=== PATIENT | female | born 1965 | race African-American/Black ===

== ENCOUNTER 2018-04-28 23:14 | Emergency (ER) | payer MEDICARE, MEDICAID ==
[2018-04-29] MEDS ORDERED: Acetaminophen/Codeine 30-300mg Tablet ONE (03:16)
== END 2018-04-29 03:57 | disposition home or self-care (01) ==
LOC: ERS 23:14
DX: J01.90 Acute sinusitis, unspecified (principal)
CPT/HCPCS: 99283

== ENCOUNTER 2019-04-01 10:31 | Emergency (ER) | payer MEDICARE, MEDICAID ==
[2019-04-01 11:03] LABS: #Lymphocytes 1.1 thou/uL (1.20-3.40); #Monocytes 0.6 thou/uL (0.11-0.59); #Neutrophils 3.9 thou/uL (1.40-6.50); %Basophils 0.1 % (0.0-1.0); %Eosinophils 0.6 % (0.0-10.0); %Lymphocytes 20.2 % (21.0-51.0); %Monocytes 10.7 % (0.0-10.0); %Neutrophils 68.5 % (42.0-75.0); Hemoglobin 13.4 g/dL (12.0-16.0); Mean Corpuscular HGB CONC 32.3 g/dL (32.0-36.0); Mean Corpuscular Hemoglobin 32.4 pg (27.0-31.0); Platelet Count 28 thou/uL (130-400); RBC Distribution Width 12.8 % (11.5-14.5); Red Blood Cell (RBC) Count 4.14 mill/uL (4.20-5.40); Reflex for Review?? NO; White Blood Cell (WBC) Count 5.7 thou/uL (4.8-10.8)
--- NOTE | 2019-04-01 11:06 | RAD ---
EXAM: Two views chest PROVIDED CLINICAL HISTORY: Productive cough for 3 days. History of lymphoma. COMPARISON: 09/10/2014. FINDINGS: There has been interval placement of a right internal jugular vein CT injectable Mediport catheter wi th tip overlying the distal SVC. Cardiac silhouette and pulmonary vasculature are within normal limits. The lungs are clear. The osseous structures have a normal appearance. No other interval canales e. IMPRESSION: No acute cardiopulmonary process.
[2019-04-01 11:26] LABS: ALT (SGPT) 22 U/L (8-55); AST (SGOT) 24 U/L (5-34); Alkaline Phosphatase 106 U/L (40-150); Anion Gap 13 mmol/L (10-20); BUN (Urea Nitrogen) 16 mg/dL (9.8-20.1); Bilirubin, Total 0.6 mg/dL (0.2-1.2); Calc. Creatinine Clearance 0 mL/min (70-130); Carbon Dioxide 26 mmol/L (22-29); Chloride 103 mmol/L (98-107); Estimated GFR-MDRD 68; Globulin 3.8 g/dL (2.4-3.5); Glucose 184 mg/dL (70-105); Potassium 4.1 mmol/L (3.5-5.1); Protein, Total 7.8 g/dL (6.0-8.3); Sodium 138 mmol/L (136-145)
== END 2019-04-01 12:45 | disposition home or self-care (01) ==
LOC: ERS 10:31
DX: J20.9 Acute bronchitis, unspecified (principal); D69.6 Thrombocytopenia, unspecified; E11.9 Type 2 diabetes mellitus without complications; Z79.4 Long term (current) use of insulin
CPT/HCPCS: 36415; 71046; 80053; 85025; 94640; J7620

== ENCOUNTER 2022-08-29 07:15 | Inpatient (IN) | payer MEDICARE, MEDICAID ==
[2022-08-29] MEDS ORDERED: Morphine 4 MG/ML VIAL ONE (07:52)
[2022-08-29 08:30] LABS: #Monocytes 0.8 thou/uL (0.11-0.59); #Neutrophils 8.8 thou/uL (1.40-6.50); %Basophils 0.2 % (0.0-1.0); %Eosinophils 0.1 % (0.0-10.0); %Monocytes 7.1 % (0.0-10.0); %Neutrophils 83.6 % (42.0-75.0); Mean Corpuscular HGB CONC 32.4 g/dL (32.0-36.0); Mean Corpuscular Hemoglobin 32.2 pg (27.0-31.0); Mean Corpuscular Volume 99.3 fl (78.0-98.0); Mean Platelet Volume 10.4 fL (7.4-10.4); Platelet Count 190 10x3/uL (130-400); RBC Distribution Width 12.7 % (11.5-14.5); Red Blood Cell (RBC) Count 3.43 mill/uL (4.20-5.40); White Blood Cell (WBC) Count 10.5 10x3/uL (4.8-10.8)
[2022-08-29 08:35] LABS: ALT (SGPT) 13 U/L (8-55); AST (SGOT) 20 U/L (5-34); Albumin 3.2 g/dL (3.5-5.0); Alkaline Phosphatase 72 U/L (40-110); Anion Gap 16 mmol/L (10-20); BUN (Urea Nitrogen) 12 mg/dL (9.8-20.1); Bilirubin, Total 1.1 mg/dL (0.2-1.2); Calc. Creatinine Clearance 0 mL/min (70-130); Calcium 8.9 mg/dL (7.8-10.44); Carbon Dioxide 18 mmol/L (22-29); Chloride 103 mmol/L (98-107); Estimated GFR 80; Globulin 3.9 g/dL (2.4-3.5); Glucose 175 mg/dL (70-105); Potassium 3.8 mmol/L (3.5-5.1); Protein, Total 7.1 g/dL (6.0-8.3); Sodium 133 mmol/L (136-145)
[2022-08-29] MEDS ORDERED: Iopamidol-370 76% 500 ML 1 ML ONE (09:14)
[2022-08-29] MEDS ORDERED: Famotidine/PF 20 mg/2ml Vial ONE (09:41)
[2022-08-29] MEDS ORDERED: methylPREDNISolone Sod Succ 40 MG VIAL ONE (09:41)
[2022-08-29] MEDS ORDERED: diphenhydrAMINE 50 MG/ML VIAL ONE (09:41)
[2022-08-29] MEDS ORDERED: Vancomycin 1.5 GRAM/300 ML BAG 1.5 GM in Premix Bag 1 BAG IVPB SCH (10:15)
[2022-08-29] MEDS ORDERED: Cefepime 2 GM VIAL ONE (11:05)
[2022-08-29] MEDS ORDERED: HumaLOG 300 UNITS/3 ML VIAL SC PRN (12:36)
[2022-08-29] MEDS ORDERED: Dextrose 50% Abboject 50 ML SYRINGE SLOW IVP PRN (12:36)
[2022-08-29] MEDS ORDERED: Dextrose 5% in Water 1,000 ML IV PRN (12:36)
[2022-08-29 12:46] LABS: SARS-CoV-2 NAA Rapid Test Not Detected (NotDetected)
[2022-08-29 12:50] LABS: Troponin I Less than 0.010 ng/mL (< 0.028)
[2022-08-29] MEDS ORDERED: fentaNYL PF 100 MCG/2 ML SYRINGE ONE ×2 (13:00→15:43)
[2022-08-29] MEDS ORDERED: Phenylephrine 10 MG/ML VIAL ONE ×2 (13:01→14:29)
[2022-08-29 13:21] LABS: Lactic Acid 2.2 mmol/L (0.5-2.2)
[2022-08-29] MEDS ORDERED: SUGAMMADEX SODIUM 200 MG/2 ML VIAL ONE (14:06)
[2022-08-29] MEDS ORDERED: PROPOFOL 200 MG/20 ML VIAL ONE (14:29)
[2022-08-29] MEDS ORDERED: Rocuronium Bromide 10 MG/ML (10ML VIAL) ONE (14:29)
[2022-08-29] MEDS ORDERED: Ondansetron PF 4 MG/2 ML Vial ONE (14:29)
[2022-08-29] MEDS ORDERED: ePHEDrine 50 MG/ML VIAL ONE (14:29)
[2022-08-29] MEDS ORDERED: Succinylcholine 200 MG/10 ml SYRINGE FS ONE (14:29)
[2022-08-29] MEDS ORDERED: Sodium Bicarb 50 MEQ/50 ML VIAL ONE (14:48)
[2022-08-29] MEDS ORDERED: Bupivacaine HCl 0.5%/Epinephrine 1:200,000/PF 30 ml Vial ONE (14:51)
[2022-08-29] MEDS ORDERED: Meperidine HCl/PF 25 MG/ML VIAL SLOW IVP PRN (14:58)
[2022-08-29] MEDS ORDERED: Promethazine HCl 25 MG/ML VIAL IM PRN (14:58)
[2022-08-29] MEDS ORDERED: HYDROmorphone 2 MG/ML VIAL SLOW IVP PRN (14:58)
[2022-08-29] MEDS ORDERED: Promethazine HCl 25 MG/ML VIAL IVPB PRN (14:58)
[2022-08-29] MEDS ORDERED: HYDROcodone/Acetaminophen 5/325 mg Tablet PO PRN (15:09)
[2022-08-29] MEDS ORDERED: Midazolam HCl 2 mg/2 ml Vial ONE (15:20)
[2022-08-29 15:35] LABS: RBC Count-Automated (BF) 6069 /cu.mm; WBC/Nucleated-Auto (BF) 1830 /cu.mm
[2022-08-29 16:00] LABS: BF Color Brown; Body Fluid Source Pericardial Fluid; Clarity Hazy (Clear); Tube # EDTA
[2022-08-29 16:01] LABS: BF Segmented Neutrophils 86 %; Cell Count Non Hematic 14 %
[2022-08-29] MEDS ORDERED: HYDROmorphone 0.5 MG/0.5 ML SYRINGE ONE (16:04)
[2022-08-29 16:15] LABS: Fluid, Protein 5.3 g/dL (Not Available)
[2022-08-29] MEDS: Acetaminophen 500 MG TAB PO SCH ×2 (17:33→21:02)
[2022-08-29] MEDS: Ibuprofen 800 MG TAB PO SCH ×2 (17:33→21:03)
[2022-08-29 17:47] VITALS: BMI 32.4
[2022-08-29 19:09] LABS: Troponin I 0.128 ng/mL (< 0.028)
[2022-08-29] MEDS ORDERED: Vancomycin 1 GM in Premix Bag 1 BAG IVPB SCH (21:00)
[2022-08-29] MEDS: Famotidine 20 MG TAB PO SCH (21:02)
[2022-08-29] MEDS: Senokot S 8.6-50 MG TAB PO PRN (21:07)
[2022-08-29] MEDS: Morphine 4 MG/ML VIAL SLOW IVP PRN (23:55)
[2022-08-29] MEDS: Cefepime 2 GM in Sodium Chloride 0.9% 100 ML IVPB SCH (23:55)
[2022-08-30] MEDS: Vancomycin HCl 750 MG in Sodium Chloride 0.9% 250 ML 250 ML IVPB SCH ×3 (01:01→23:47)
[2022-08-30 04:40] LABS: #Eosinphils 0.1 thou/uL (0.0-0.7); #Lymphocytes 1.2 thou/uL (1.20-3.40); #Monocytes 0.9 thou/uL (0.11-0.59); #Neutrophils 6.4 thou/uL (1.40-6.50); %Basophils 0.1 % (0.0-1.0); %Eosinophils 0.6 % (0.0-10.0); %Lymphocytes 14.4 % (21.0-51.0); %Neutrophils 74.9 % (42.0-75.0); Hemoglobin 11.1 g/dL (12.0-16.0); Mean Corpuscular HGB CONC 32.8 g/dL (32.0-36.0); Mean Corpuscular Hemoglobin 33.7 pg (27.0-31.0); Mean Platelet Volume 9.7 fL (7.4-10.4); Platelet Count 194 10x3/uL (130-400); Red Blood Cell (RBC) Count 3.31 mill/uL (4.20-5.40); White Blood Cell (WBC) Count 8.6 10x3/uL (4.8-10.8)
[2022-08-30 04:50] LABS: Anion Gap 12 mmol/L (10-20); BUN (Urea Nitrogen) 17 mg/dL (9.8-20.1); Calc. Creatinine Clearance 83 mL/min (70-130); Calcium 8.5 mg/dL (7.8-10.44); Carbon Dioxide 22 mmol/L (22-29); Chloride 107 mmol/L (98-107); Estimated GFR 61; Glucose 126 mg/dL (70-105); Potassium 4.1 mmol/L (3.5-5.1); Sodium 137 mmol/L (136-145)
[2022-08-30] MEDS: Ibuprofen 800 MG TAB PO SCH ×3 (06:38→21:32)
[2022-08-30] MEDS ORDERED: Acetaminophen 500 MG TAB PO PRN (08:03)
[2022-08-30] MEDS: Enoxaparin Sodium 40 MG/0.4 ML SYRINGE SC SCH (08:51)
[2022-08-30] MEDS: Famotidine 20 MG TAB PO SCH ×3 (08:52→21:37)
[2022-08-30] MEDS: Cefepime 2 GM in Sodium Chloride 0.9% 100 ML IVPB SCH ×2 (12:18→22:29)
[2022-08-30] MEDS: Morphine 4 MG/ML VIAL SLOW IVP PRN (12:19)
[2022-08-30] MEDS: Bisacodyl 5 MG TAB PO PRN (12:29)
[2022-08-30] MEDS ORDERED: Dicyclomine 20 MG TAB PO PRN (12:42)
[2022-08-30] MEDS ORDERED: Amitriptyline HCl 25 MG TAB PO PRN (12:42)
[2022-08-30] MEDS ORDERED: Cyclobenzaprine 10 MG TAB PO PRN (12:42)
[2022-08-30] MEDS ORDERED: Loratadine 10 MG TAB PO PRN (12:53)
[2022-08-30] MEDS ORDERED: Albuterol Sulfate 2.5 mg/3 ml Neb NEB PRN (13:18)
[2022-08-30] MEDS: HYDROcodone/Acetaminophen 10/325 mg Tablet PO PRN ×2 (14:54→22:29)
[2022-08-30] MEDS: ALPRAZolam 0.5 MG TAB PO PRN (16:44)
[2022-08-30] MEDS: Polyethylene Glycol 3350 17 GM Packet PO PRN (16:44)
[2022-08-30] MEDS: Gabapentin 300 MG CAP PO SCH (21:32)
[2022-08-30 23:23] LABS: Vancomycin, Trough 15.7 ug/mL
[2022-08-31 04:47] LABS: Hemoglobin 10.3 g/dL (12.0-16.0); Mean Corpuscular HGB CONC 32.6 g/dL (32.0-36.0); Mean Corpuscular Hemoglobin 33.4 pg (27.0-31.0); Mean Platelet Volume 9.8 fL (7.4-10.4); Platelet Count 209 10x3/uL (130-400); RBC Distribution Width 12.8 % (11.5-14.5); Red Blood Cell (RBC) Count 3.09 mill/uL (4.20-5.40); White Blood Cell (WBC) Count 4.9 10x3/uL (4.8-10.8)
[2022-08-31 05:16] LABS: Anion Gap 14 mmol/L (10-20); BUN (Urea Nitrogen) 24 mg/dL (9.8-20.1); Calc. Creatinine Clearance 91 mL/min (70-130); Calcium 8.6 mg/dL (7.8-10.44); Carbon Dioxide 21 mmol/L (22-29); Chloride 107 mmol/L (98-107); Estimated GFR 68; Glucose 106 mg/dL (70-105); Potassium 3.9 mmol/L (3.5-5.1); Sodium 138 mmol/L (136-145)
[2022-08-31] MEDS: Ibuprofen 800 MG TAB PO SCH ×3 (06:35→23:11)
[2022-08-31] MEDS ORDERED: Non-Formulary Item 1 EACH (Linaclotide [Linzess] 145 MCG Capsule) PO SCH (09:00)
[2022-08-31] MEDS: Senokot S 8.6-50 MG TAB PO PRN (10:28)
[2022-08-31] MEDS: Famotidine 20 MG TAB PO SCH ×2 (10:30→20:02)
[2022-08-31] MEDS: Enoxaparin Sodium 40 MG/0.4 ML SYRINGE SC SCH (10:31)
[2022-08-31] MEDS: Gabapentin 300 MG CAP PO SCH ×3 (10:31→20:15)
[2022-08-31] MEDS: Bisacodyl 5 MG TAB PO PRN (10:33)
[2022-08-31] MEDS: Polyethylene Glycol 3350 17 GM Packet PO PRN (10:33)
[2022-08-31] MEDS: Cefepime 2 GM in Sodium Chloride 0.9% 100 ML IVPB SCH ×2 (12:17→23:58)
[2022-08-31] MEDS: HYDROcodone/Acetaminophen 5/325 mg Tablet PO PRN (12:25)
[2022-08-31] MEDS: Vancomycin HCl 750 MG in Sodium Chloride 0.9% 250 ML 250 ML IVPB SCH ×2 (13:01→23:59)
[2022-08-31] MEDS: Morphine 4 MG/ML VIAL SLOW IVP PRN (20:22)
[2022-09-01 05:05] LABS: ALT (SGPT) 15 U/L (8-55); AST (SGOT) 20 U/L (5-34); Albumin 2.6 g/dL (3.5-5.0); Alkaline Phosphatase 85 U/L (40-110); Anion Gap 9 mmol/L (10-20); BUN (Urea Nitrogen) 24 mg/dL (9.8-20.1); Bilirubin, Total 0.3 mg/dL (0.2-1.2); Calc. Creatinine Clearance 79 mL/min (70-130); Calcium 8.7 mg/dL (7.8-10.44); Carbon Dioxide 25 mmol/L (22-29); Chloride 108 mmol/L (98-107); Estimated GFR 57; Globulin 3.3 g/dL (2.4-3.5); Glucose 122 mg/dL (70-105); Magnesium 1.7 mg/dL (1.6-2.6); Phosphorus 3.2 mg/dL (2.3-4.7); Potassium 3.8 mmol/L (3.5-5.1); Protein, Total 5.9 g/dL (6.0-8.3); Sodium 138 mmol/L (136-145)
[2022-09-01] MEDS: Ibuprofen 800 MG TAB PO SCH ×3 (07:34→22:40)
[2022-09-01 08:16] LABS: Band 2 % (5-11); Eosinophils 3 % (0-10); Hemoglobin 9.6 g/dL (12.0-16.0); Lymphocytes 34 % (21-51); MDiff Complete? YES; Mean Corpuscular HGB CONC 31.6 g/dL (32.0-36.0); Mean Corpuscular Hemoglobin 32.4 pg (27.0-31.0); Mean Platelet Volume 9.6 fL (7.4-10.4); Monocytes 22 % (0-10); Neutrophil 39 % (42-75); Nucleated RBC 2 % (0); Ovalocytes SLIGHT = 2-5 cells (100X) (0-1/hpf); Platelet Count 237 10x3/uL (130-400); Platelet Morphology Comment Appears Adequate; RBC Distribution Width 12.9 % (11.5-14.5); Red Blood Cell (RBC) Count 2.98 mill/uL (4.20-5.40); White Blood Cell (WBC) Count 2.7 10x3/uL (4.8-10.8)
[2022-09-01] MEDS: Enoxaparin Sodium 40 MG/0.4 ML SYRINGE SC SCH (09:14)
[2022-09-01] MEDS: Famotidine 20 MG TAB PO SCH ×2 (09:14→21:09)
[2022-09-01] MEDS: Gabapentin 300 MG CAP PO SCH ×2 (09:14→20:55)
[2022-09-01] MEDS: Cefepime 2 GM in Sodium Chloride 0.9% 100 ML IVPB SCH (10:49)
[2022-09-01 11:29] LABS: Vancomycin, Trough 17.1 ug/mL
[2022-09-01] MEDS: HYDROcodone/Acetaminophen 10/325 mg Tablet PO PRN ×2 (12:46→21:08)
[2022-09-01] MEDS: Vancomycin HCl 750 MG in Sodium Chloride 0.9% 250 ML 250 ML IVPB SCH ×2 (14:30→23:27)
[2022-09-01] MEDS: Morphine 4 MG/ML VIAL SLOW IVP PRN (18:20)
[2022-09-01] MEDS ORDERED: Prevnar 13-Val Conj/PF 0.5 ML SYRINGE IM ONE (18:30)
[2022-09-01] MEDS: ALPRAZolam 0.5 MG TAB PO PRN (21:09)
[2022-09-01] MEDS: Cefepime 1 GM in Sodium Chloride 0.9% 100 ML IVPB SCH (22:41)
[2022-09-02 05:34] LABS: ALT (SGPT) 13 U/L (8-55); AST (SGOT) 18 U/L (5-34); Albumin 2.7 g/dL (3.5-5.0); Alkaline Phosphatase 90 U/L (40-110); Anion Gap 12 mmol/L (10-20); BUN (Urea Nitrogen) 22 mg/dL (9.8-20.1); Bilirubin, Total 0.3 mg/dL (0.2-1.2); Calc. Creatinine Clearance 107 mL/min (70-130); Calcium 8.9 mg/dL (7.8-10.44); Carbon Dioxide 25 mmol/L (22-29); Chloride 109 mmol/L (98-107); Estimated GFR 83; Globulin 3.6 g/dL (2.4-3.5); Glucose 102 mg/dL (70-105); Magnesium 1.7 mg/dL (1.6-2.6); Phosphorus 3.7 mg/dL (2.3-4.7); Potassium 3.8 mmol/L (3.5-5.1); Protein, Total 6.3 g/dL (6.0-8.3); Sodium 142 mmol/L (136-145)
[2022-09-02] MEDS: Ibuprofen 800 MG TAB PO SCH ×3 (06:18→20:07)
[2022-09-02 07:14] LABS: Band 4 % (5-11); Burr Cells SLIGHT = 2-5 cells (100X) (0-1/hpf); Eosinophils 1 % (0-10); Hemoglobin 10.3 g/dL (12.0-16.0); Hypochromia SLIGHT = 6-15 cells (100X) (0-5/hpf); Lymphocytes 19 % (21-51); MDiff Complete? YES; Macrocytosis SLIGHT = 6-15 cells (100X) (0-5/hpf); Mean Corpuscular HGB CONC 31.3 g/dL (32.0-36.0); Mean Corpuscular Hemoglobin 32.5 pg (27.0-31.0); Mean Platelet Volume 9.5 fL (7.4-10.4); Monocytes 8 % (0-10); Neutrophil 68 % (42-75); Ovalocytes SLIGHT = 2-5 cells (100X) (0-1/hpf); Platelet Count 272 10x3/uL (130-400); Platelet Morphology Comment Appears Adequate; Polychromasia SLIGHT = 2-3 cells (100X) (0-2/hpf); RBC Distribution Width 13.2 % (11.5-14.5); Red Blood Cell (RBC) Count 3.19 mill/uL (4.20-5.40); White Blood Cell (WBC) Count 4.7 10x3/uL (4.8-10.8)
[2022-09-02] MEDS: Enoxaparin Sodium 40 MG/0.4 ML SYRINGE SC SCH (08:57)
[2022-09-02] MEDS: Gabapentin 300 MG CAP PO SCH ×2 (08:57→20:08)
[2022-09-02] MEDS: Famotidine 20 MG TAB PO SCH ×2 (08:57→20:07)
[2022-09-02] MEDS: HYDROcodone/Acetaminophen 10/325 mg Tablet PO PRN (08:58)
[2022-09-02] MEDS: HYDROcodone/Acetaminophen 5/325 mg Tablet PO PRN (09:00)
[2022-09-02] MEDS: Polyethylene Glycol 3350 17 GM Packet PO PRN (09:01)
[2022-09-02] MEDS: Cefepime 1 GM in Sodium Chloride 0.9% 100 ML IVPB SCH (11:40)
[2022-09-02] MEDS: Vancomycin HCl 750 MG in Sodium Chloride 0.9% 250 ML 250 ML IVPB SCH (12:58)
[2022-09-02] MEDS: Cefdinir 300 MG CAP PO SCH (20:07)
[2022-09-02] MEDS: ALPRAZolam 0.5 MG TAB PO PRN (20:07)
[2022-09-02] MEDS: Morphine 4 MG/ML VIAL SLOW IVP PRN (21:46)
[2022-09-03 05:11] LABS: ALT (SGPT) 12 U/L (8-55); AST (SGOT) 17 U/L (5-34); Albumin 2.6 g/dL (3.5-5.0); Alkaline Phosphatase 102 U/L (40-110); Anion Gap 11 mmol/L (10-20); BUN (Urea Nitrogen) 23 mg/dL (9.8-20.1); Bilirubin, Total 0.3 mg/dL (0.2-1.2); Calc. Creatinine Clearance 100 mL/min (70-130); Calcium 8.9 mg/dL (7.8-10.44); Carbon Dioxide 25 mmol/L (22-29); Chloride 111 mmol/L (98-107); Estimated GFR 77; Globulin 3.4 g/dL (2.4-3.5); Glucose 90 mg/dL (70-105); Potassium 4.1 mmol/L (3.5-5.1); Sodium 143 mmol/L (136-145)
[2022-09-03 06:01] LABS: Band 9 % (5-11); Eosinophils 1 % (0-10); Hemoglobin 9.9 g/dL (12.0-16.0); Hypochromia SLIGHT = 6-15 cells (100X) (0-5/hpf); Lymphocytes 22 % (21-51); MDiff Complete? YES; Macrocytosis SLIGHT = 6-15 cells (100X) (0-5/hpf); Mean Corpuscular HGB CONC 34.8 g/dL (32.0-36.0); Mean Corpuscular Hemoglobin 35.6 pg (27.0-31.0); Mean Platelet Volume 9.3 fL (7.4-10.4); Monocytes 12 % (0-10); Neutrophil 56 % (42-75); Platelet Count 284 10x3/uL (130-400); Platelet Morphology Comment Appears Adequate; Red Blood Cell (RBC) Count 2.77 mill/uL (4.20-5.40); White Blood Cell (WBC) Count 3.9 10x3/uL (4.8-10.8)
[2022-09-03] MEDS: Ibuprofen 800 MG TAB PO SCH ×4 (06:10→20:56)
[2022-09-03] MEDS: Enoxaparin Sodium 40 MG/0.4 ML SYRINGE SC SCH (14:11)
[2022-09-03] MEDS: Cefdinir 300 MG CAP PO SCH ×2 (14:11→20:29)
[2022-09-03] MEDS: Gabapentin 300 MG CAP PO SCH ×2 (14:12→20:32)
[2022-09-03] MEDS: Famotidine 20 MG TAB PO SCH ×2 (14:12→20:29)
[2022-09-03] MEDS: Morphine 4 MG/ML VIAL SLOW IVP PRN (15:29)
[2022-09-03] MEDS: Polyethylene Glycol 3350 17 GM Packet PO PRN (15:30)
[2022-09-03] MEDS: Doxycycline 100 MG in Sodium Chloride 0.9% 100 ML IVPB SCH (20:29)
[2022-09-03] MEDS: ALPRAZolam 0.5 MG TAB PO PRN (20:46)
[2022-09-03] MEDS: HYDROcodone/Acetaminophen 5/325 mg Tablet PO PRN (20:46)
[2022-09-04 05:25] LABS: ALT (SGPT) 15 U/L (8-55); AST (SGOT) 19 U/L (5-34); Albumin 2.8 g/dL (3.5-5.0); Alkaline Phosphatase 104 U/L (40-110); Anion Gap 13 mmol/L (10-20); BUN (Urea Nitrogen) 18 mg/dL (9.8-20.1); Bilirubin, Total 0.3 mg/dL (0.2-1.2); Calc. Creatinine Clearance 114 mL/min (70-130); Calcium 9.2 mg/dL (7.8-10.44); Carbon Dioxide 24 mmol/L (22-29); Chloride 108 mmol/L (98-107); Estimated GFR 90; Globulin 3.5 g/dL (2.4-3.5); Glucose 98 mg/dL (70-105); Potassium 4.1 mmol/L (3.5-5.1); Protein, Total 6.3 g/dL (6.0-8.3); Sodium 141 mmol/L (136-145)
[2022-09-04 05:27] LABS: Hemoglobin 10.2 g/dL (12.0-16.0); Mean Corpuscular Hemoglobin 32.7 pg (27.0-31.0); Mean Platelet Volume 9.2 fL (7.4-10.4); Platelet Count 312 10x3/uL (130-400); RBC Distribution Width 13.1 % (11.5-14.5); Red Blood Cell (RBC) Count 3.14 mill/uL (4.20-5.40); White Blood Cell (WBC) Count 3.7 10x3/uL (4.8-10.8)
[2022-09-04 05:28] LABS: #Eosinphils 0.1 thou/uL (0.0-0.7); #Lymphocytes 1.8 thou/uL (1.20-3.40); #Monocytes 0.5 thou/uL (0.11-0.59); #Neutrophils 1.3 thou/uL (1.40-6.50); %Basophils 0.3 % (0.0-1.0); %Eosinophils 2.7 % (0.0-10.0); %Lymphocytes 47.9 % (21.0-51.0); %Monocytes 13.7 % (0.0-10.0); %Neutrophils 35.3 % (42.0-75.0)
[2022-09-04] MEDS: Famotidine 20 MG TAB PO SCH ×2 (09:55→21:40)
[2022-09-04] MEDS: Gabapentin 300 MG CAP PO SCH ×2 (09:55→21:41)
[2022-09-04] MEDS: Cefdinir 300 MG CAP PO SCH ×2 (09:56→21:39)
[2022-09-04] MEDS: Doxycycline 100 MG in Sodium Chloride 0.9% 100 ML IVPB SCH (09:56)
[2022-09-04] MEDS: Enoxaparin Sodium 40 MG/0.4 ML SYRINGE SC SCH (09:56)
[2022-09-04] MEDS: HYDROcodone/Acetaminophen 10/325 mg Tablet PO PRN (09:58)
[2022-09-04] MEDS: Ibuprofen 800 MG TAB PO SCH ×3 (11:03→21:41)
[2022-09-04] MEDS: Polyethylene Glycol 3350 17 GM Packet PO PRN (12:12)
[2022-09-04] MEDS: Doxycycline 100 MG CAP PO SCH (21:39)
[2022-09-04] MEDS: ALPRAZolam 0.5 MG TAB PO PRN (21:40)
[2022-09-04] MEDS: HYDROcodone/Acetaminophen 5/325 mg Tablet PO PRN (21:40)
[2022-09-05 05:25] LABS: ALT (SGPT) 17 U/L (8-55); AST (SGOT) 23 U/L (5-34); Albumin 2.9 g/dL (3.5-5.0); Alkaline Phosphatase 95 U/L (40-110); Anion Gap 14 mmol/L (10-20); BUN (Urea Nitrogen) 15 mg/dL (9.8-20.1); Bilirubin, Total 0.4 mg/dL (0.2-1.2); Calc. Creatinine Clearance 111 mL/min (70-130); Calcium 9.2 mg/dL (7.8-10.44); Carbon Dioxide 28 mmol/L (22-29); Chloride 106 mmol/L (98-107); Estimated GFR 87; Globulin 3.2 g/dL (2.4-3.5); Glucose 90 mg/dL (70-105); Potassium 4.7 mmol/L (3.5-5.1); Protein, Total 6.1 g/dL (6.0-8.3); Sodium 143 mmol/L (136-145)
[2022-09-05 05:51] LABS: Hemoglobin 10.8 g/dL (12.0-16.0); Hypochromia SLIGHT = 6-15 cells (100X) (0-5/hpf); Lymphocytes 56 % (21-51); MDiff Complete? YES; Macrocytosis SLIGHT = 6-15 cells (100X) (0-5/hpf); Mean Corpuscular HGB CONC 33.3 g/dL (32.0-36.0); Mean Corpuscular Hemoglobin 33.8 pg (27.0-31.0); Mean Platelet Volume 8.9 fL (7.4-10.4); Monocytes 4 % (0-10); Neutrophil 40 % (42-75); Platelet Count 343 10x3/uL (130-400); Platelet Morphology Comment Appears Increased; RBC Distribution Width 12.9 % (11.5-14.5); White Blood Cell (WBC) Count 2.3 10x3/uL (4.8-10.8)
[2022-09-05] MEDS: Ibuprofen 800 MG TAB PO SCH ×2 (08:36→12:38)
[2022-09-05] MEDS: Cefdinir 300 MG CAP PO SCH (08:37)
[2022-09-05] MEDS: Enoxaparin Sodium 40 MG/0.4 ML SYRINGE SC SCH (08:37)
[2022-09-05] MEDS: Polyethylene Glycol 3350 17 GM Packet PO PRN (08:37)
[2022-09-05] MEDS: Famotidine 20 MG TAB PO SCH (08:37)
[2022-09-05] MEDS: Doxycycline 100 MG CAP PO SCH (08:37)
[2022-09-05] MEDS: HYDROcodone/Acetaminophen 10/325 mg Tablet PO PRN (08:38)
[2022-09-05] MEDS: Gabapentin 300 MG CAP PO SCH (08:39)
[2022-09-05 12:37] VITALS: BP 133/91; TEMP 98.9
[2022-09-08 09:39] LABS: Final Culture No virus isolated. (.)
== END 2022-09-05 17:15 | disposition home or self-care (01) | DRG 270 ==
LOC: ERS 07:15 → ERHOLD 11:21 → CCU 14:17 → 2NO 17:47
PROVIDERS: ADMIT Hospitalist; ATTEND Internal Medicine
PROC: 0W9D0ZZ Drainage of Pericardial Cavity, Open Approach (ICD-10-PCS; principal; 2022-08-29)
DX: I30.9 Acute pericarditis, unspecified (principal); J18.9 Pneumonia, unspecified organism; J96.01 Acute respiratory failure with hypoxia; C88.4 Extranodal marginal zone B-cell lymphoma of mucosa-associated lymphoid tissue [MALT-lymphoma]; D69.3 Immune thrombocytopenic purpura; E87.20 Acidosis, unspecified; Z20.822 Contact with and (suspected) exposure to COVID-19; M32.9 Systemic lupus erythematosus, unspecified; J43.9 Emphysema, unspecified; F41.9 Anxiety disorder, unspecified; F32.A Depression, unspecified; E11.9 Type 2 diabetes mellitus without complications; Z90.710 Acquired absence of both cervix and uterus; Z88.0 Allergy status to penicillin; Z79.899 Other long term (current) drug therapy
CPT/HCPCS: 36415; 36416; 71045; 71275; 80048; 80053; 80202; 82103; 82150; 83605; 83735; 83880; 84100; 84145; 84157; 84484; 85025; 85027; 85060; 85379; 87040; 87070; 87205; 87252; 87811; 88112; 88305; 89051; 93005; 93306; 94640; 96361; 96365; 96375; 97139; J0692; J1170; J1200; J1642; J1650; J2250; J2270; J2370; J2405; J2704; J2920; J3370; J3490; J7050; J7611; J7620; Q9967; S0028

== ENCOUNTER 2022-11-05 00:23 | Emergency (ER) | payer MEDICARE, MEDICAID ==
[2022-11-05] MEDS ORDERED: methylPREDNISolone Sod Succ 40 MG VIAL ONE (01:47)
[2022-11-05] MEDS ORDERED: diphenhydrAMINE 50 MG/ML VIAL ONE (01:47)
[2022-11-05] MEDS ORDERED: Famotidine/PF 20 mg/2ml Vial ONE (01:47)
[2022-11-05 02:11] LABS: PTT 28.6 sec (22.9-36.1)
[2022-11-05 02:15] LABS: Hemoglobin 11.1 g/dL (12.0-16.0); Mean Corpuscular Hemoglobin 32.8 pg (27.0-31.0); Mean Corpuscular Volume 99.5 fl (78.0-98.0); Mean Platelet Volume 10.5 fL (7.4-10.4); Platelet Count 210 10x3/uL (130-400); RBC Distribution Width 13.2 % (11.5-14.5); White Blood Cell (WBC) Count 9.5 10x3/uL (4.8-10.8)
[2022-11-05 02:19] LABS: ALT (SGPT) 11 U/L (8-55); AST (SGOT) 16 U/L (5-34); Albumin 3.5 g/dL (3.5-5.0); Alkaline Phosphatase 101 U/L (40-110); Anion Gap 16 mmol/L (10-20); BUN (Urea Nitrogen) 19 mg/dL (9.8-20.1); Bilirubin, Total 0.4 mg/dL (0.2-1.2); Calc. Creatinine Clearance 0 mL/min (70-130); Calcium 9.1 mg/dL (7.8-10.44); Carbon Dioxide 25 mmol/L (22-29); Chloride 104 mmol/L (98-107); Estimated GFR 77; Globulin 3.3 g/dL (2.4-3.5); Glucose 88 mg/dL (70-105); Lipase 67 U/L (8-78); Potassium 3.7 mmol/L (3.5-5.1); Protein, Total 6.8 g/dL (6.0-8.3); Sodium 141 mmol/L (136-145)
[2022-11-05 02:21] LABS: Band 2 % (5-11); Eosinophils 2 % (0-10); Lymphocytes 59 % (21-51); MDiff Complete? YES; Monocytes 3 % (0-10); Neutrophil 33 % (42-75)
[2022-11-05] MEDS ORDERED: Ketorolac Tromethamine 30 MG/ML VIAL ONE (03:48)
[2022-11-05] MEDS ORDERED: Morphine 4 MG/ML VIAL ONE (03:48)
[2022-11-05] MEDS ORDERED: Ondansetron PF 4 MG/2 ML Vial ONE (03:48)
[2022-11-05] MEDS ORDERED: Iopamidol-370 76% 500 ML 1 ML ONE (15:35)
== END 2022-11-05 06:00 | disposition home or self-care (01) ==
LOC: ERS 00:23
DX: R07.89 Other chest pain (principal); E11.9 Type 2 diabetes mellitus without complications; Z79.4 Long term (current) use of insulin
CPT/HCPCS: 36415; 71275; 80053; 83690; 83880; 84484; 85025; 85610; 85730; 93005; 96374; 96375; J1200; J1885; J2270; J2405; J2920; S0028

== ENCOUNTER 2022-11-09 09:21 | Emergency (ER) | payer MEDICARE, MEDICAID | END 2022-11-09 11:05 | disposition home or self-care (01) | LOC: ERS 09:21 | DX: B02.9 Zoster without complications (principal); E11.9 Type 2 diabetes mellitus without complications; Z79.4 Long term (current) use of insulin | CPT/HCPCS: 99282 ==

== ENCOUNTER 2023-08-20 06:05 | Emergency (ER) | payer MEDICARE, OTHER | END 2023-08-20 06:35 | disposition home or self-care (01) | LOC: ERS 06:05 | DX: J01.90 Acute sinusitis, unspecified (principal) | CPT/HCPCS: 99283 ==

== ENCOUNTER 2023-11-10 11:42 | Emergency (ER) | payer MEDICARE, OTHER, MEDICAID | END 2023-11-10 12:38 | disposition left against medical advice (07) | LOC: ERS 11:42 | DX: Z53.21 Procedure and treatment not carried out due to patient leaving prior to being seen by health care provider (principal) ==